=== PATIENT | female | born 1955 | race American Indian/Alaskan Native ===

== ENCOUNTER 2017-07-26 15:56 | Emergency (ER) | payer OTHER ==
[2017-07-26] MEDS ORDERED: CATAPRES PO ONE (17:27)
[2017-07-26] MEDS ORDERED: MOTRIN PO ONE (17:27)
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
[2017-07-26 18:37] LABS: Bilirubin,Urine NEG (Negative); Blood,Urine NEG (Negative); Color,Urine Yellow (Yellow); Mucus,Urine FEW /HPF; Protein,Urine <15 mg/dL mg/dL (Negative); Urobilinogen,Urine < 2.0 mg/dL (<2.0); WBC,Urine < 1.0 /HPF (0.0-6.0)
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
[2017-07-26 19:48] VITALS: BP 148/81
== END 2017-07-26 19:56 | disposition home or self-care (01) ==
LOC: ED 15:56
DX: S39.012A Strain of muscle, fascia and tendon of lower back, initial encounter (principal); R51 Headache; H40.9 Unspecified glaucoma; V87.7XXA Person injured in collision between other specified motor vehicles (traffic), initial encounter; Y93.89 Activity, other specified; Y99.8 Other external cause status; Y92.410 Unspecified street and highway as the place of occurrence of the external cause
CPT/HCPCS: 72100; 81001; 99284